=== PATIENT | female | born 1980 | race African-American/Black ===

== ENCOUNTER 2018-02-16 14:27 | Emergency (ER) | payer OTHER ==
[~2018-02-16] VITALS: Ht 154.9 cm; Wt 49.4 kg
--- OUTSIDE RECORDS SUMMARY | 2018-02-16 14:31 | XMS REPORT | Continuity of Care Document ---
Author Author [facility] Interface Address Unknown Phone Unavailable Problems Problem Status Onset Date Classification Date Reported Comments Source Encounter for medical screening examination 11/02/2017 11/05/2017 [facility] LOCK JAW Active 11/02/2017 [facility] Medications Medication Details Route Status Patient Instructions Ordering Provider Order Date Source Allergies, Adverse Reactions, Alerts Substance Category Reaction Severity Reaction type Status Date Reported Comments Source morphine Assertion Drug allergy Active [facility] Immunizations Immunization Date Given Site Status Last Updated Comments Source Results Order Name Results Value Reference Range Date Interpretation Comments Source Vital Signs Vital Sign Value Date Comments Source Systolic (mm Hg) 142 11/02/2017 [facility] Diastolic (mm Hg) 80 11/02/2017 [facility] Height 154.94 cm 11/02/2017 [facility] Respitory Rate 18 11/02/2017 [facility] Heart Rate 53 11/02/2017 [facility] Temperature Oral (F) 97.8 F 11/02/2017 [facility] Weight 51.364 11/02/2017 [facility] BMI Calculated 21.4 11/02/2017 [facility] Encounters Location Location Details Encounter Type Encounter Number Reason For Visit Attending Provider ADM Date DC Date Status Source [facility] [id number] Artis Parks 11/02/2017 11/02/2017 [facility] Procedures Procedure Code Date Perfomer Comments Source
--- OUTSIDE RECORDS SUMMARY | 2018-02-16 14:31 | XMS REPORT ---
Author Author [facility] Address Unknown Phone Unavailable Care Team Providers Care Clerical Administrator Name Role Phone Unavailable Unavailable Problems This patient has no known problems. Allergies, Adverse Reactions, Alerts This patient has no known allergies or adverse reactions. Medications This patient has no known medications. Encounters Start Date/Time End Date/Time Encounter Type Admission Type Attending [facility] Facility Care Department Encounter ID 2017-11-02 14:54:00 2017-11-02 14:54:00 Emergency [facility] [id number] 2017-06-24 23:45:39 2017-06-24 23:45:39 Emergency [facility] [id number] 2017-06-24 21:44:57 2017-06-24 21:44:57 Emergency [facility] [id number] 2017-06-24 20:46:54 2017-06-24 20:46:54 Emergency [facility] [id number]
--- OUTSIDE RECORDS SUMMARY | 2018-02-16 14:31 | XMS REPORT | Clinical Summary ---
Author Author [facility] Organization [facility] Address Unknown Phone Unavailable Care Team Providers Care Trouble Locator Test Desk Name Role Phone PCP Unavailable Allergies Active Allergy Reactions Severity Noted Date Comments Morphine 09/14/2014 Current Medications Prescription Sig. Disp. Refills Start End Date Status Date QUEtiapine (SEROQUEL) 50 Take 50 mg by mouth Active mg tablet daily. omeprazole (PRILOSEC) 20 Take 1 capsule by mouth 30 capsule 0 09/15/19 Active mg delayed release daily. 15 capsuleIndications: Unspecified gastritis and gastroduodenitis without mention of hemorrhage yplrnukco-vhgknhyi-xbhvtg Take 10 mL by mouth 3 100 mL 0 09/15/19 Active xrs-fnrgqkibome-jfpxvltof times daily. 15 -diphenhydrAMINE 1:1:1 suspension -CMPDIndications: Abdominal pain, generalized ibuprofen (MOTRIN) 600 mg Take 1 tablet by mouth 21 tablet 0 06/25/19 Active tabletIndications: Other every 8 hours as needed 18 chest pain for Pain. Active Problems Problem Noted Date Other chest pain 06/24/2017 Encounters Date Type Specialty Care Team Description 11/02/2017 Emergency Emergency Medicine 06/24/2017 Emergency Emergency Medicine Gretchen Mcneill, Other chest pain (Primary - MD Dx) 06/25/2017 after 02/15/2017 Social History Tobacco Use Types Packs/Day Years Used Date Never Smoker Smokeless Tobacco: Never Used Sex Assigned at Date Recorded Not on file Last Filed Vital Signs Vital Sign Reading Time Taken Blood Pressure 124/85 11/02/2017 2:57 PM CDT Pulse 63 11/02/2017 2:57 PM CDT Temperature 37 C (98.6 F) 11/02/2017 2:57 PM CDT Respiratory Rate 18 11/02/2017 2:57 PM CDT Oxygen Saturation 100% 11/02/2017 2:57 PM CDT Inhaled Oxygen - - Concentration Weight - - Height - - Body Mass Index - - Plan of Treatment Health Maintenance Due Date Last Done Comments Cervical Cancer Scrn (3 2001 Yrs) IMM Influenza Seasonal 01/27/2018Jan to June (>/=19 yrs) Procedures Procedure Name Priority Date/Time Associated Diagnosis Comments CT CHEST PE PROTOCOL STAT 06/25/2017 Other chest pain Results for this 12:21 AM GIS PROFESSOR procedure are in the results section. PT/INR/PTT STAT 06/24/2017 Results for this 11:58 PM GIS PROFESSOR procedure are in the results section. XRAY CHEST 2 VIEWS STAT 06/24/2017 Other chest pain Results for this 9:55 PM GIS PROFESSOR procedure are in the results section. BMP POC Routine 06/24/2017 Results for this 9:29 PM GIS PROFESSOR procedure are in the results section. POCT URINE DIPSTICK - STAT 06/24/2017 Results for this 9:28 PM GIS PROFESSOR procedure are in the results section. D-DIMER STAT 06/24/2017 Results for this 9:24 PM GIS PROFESSOR procedure are in the results section. 12 LEAD EKG Routine 06/24/2017 Results for this 7:50 PM GIS PROFESSOR procedure are in the results section. after 02/15/2017 Results * CT CHEST PE PROTOCOL (06/25/2017 12:21 AM) Impressions Performed At IMPRESSION: SMS 1.No pulmonary embolus. No acute thoracic abnormality identified to account for chest pain. 2.4 mm nodule in the left lower lobe, can be followed up in one [address] scan. Six-month follow-up is recommended if patient has a known smoking history or other significant risk factors. 3.Surgical changes of sleeve gastrectomy. This [facility] radiology report is a preliminary resident dictation until finalized by an attending.Changes to this preliminary report may occur in an additional preliminary or finalized version. Dictated By: Will Ward MD, 06/25/2017 12:35 AM I have reviewed the study and agree with the findings in this report. Signed By: Jesus Ellsworth MD, 06/25/2017 12:49 AM Narrative Performed At EXAM: CTA CHEST WITH CONTRAST SMS DATE: 06/25/2017 12:23 AM INDICATION: chest pain COMPARISON: None. TECHNIQUE: Volumetric CT acquisition of the chest, during pulmonary arterial phase, after intravenous contrast. Axial, sagittal, coronal, and oblique MIP reconstructions are created at the acquisition workstation. IV Contrast: 110 mL Omnipaque 350 DLP: 316 mGy-cm FINDINGS: Lines and tubes: None. Lower neck: Within normal limits. Heart and Mediastinum: Cardiothoracic ratio measures 0.5. Measurements and appearance of the thoracic aorta are normal. At the same level where the ascending aorta measures 2.6 cm the pulmonary trunk measures 1.8 cm. There is no pulmonary embolus. Pleura: Normal. Lymph Nodes: There is no hilar, mediastinal, axillary or internal mammary lymphadenopathy. Lungs: 4 mm nodule seen in the periphery of the left lower lobe on image 54 series 3 Otherwise clear. Trachea: Patent. Upper abdomen: Surgical changes of sleeve gastrectomy. Otherwise within normal limits. Bones and soft tissues: No acute abnormality. Procedure Note Interface, Rad/Mammog In - 06/25/2017 12:55 AM GIS PROFESSOR EXAM: CTA CHEST WITH CONTRAST DATE: 06/25/2017 12:23 AM INDICATION: chest pain COMPARISON: None. TECHNIQUE: Volumetric CT acquisition of the chest, during pulmonary arterial phase, after intravenous contrast. Axial, sagittal, coronal, and oblique MIP reconstructions are created at the acquisition workstation. IV Contrast: 110 mL Omnipaque 350 DLP: 316 mGy-cm FINDINGS: Lines and tubes: None. Lower neck: Within normal limits. Heart and Mediastinum: Cardiothoracic ratio measures 0.5. Measurements and appearance of the thoracic aorta are normal. At the same level where the ascending aorta measures 2.6 cm the pulmonary trunk measures 1.8 cm. There is no pulmonary embolus. Pleura: Normal. Lymph Nodes: There is no hilar, mediastinal, axillary or internal mammary lymphadenopathy. Lungs: 4 mm nodule seen in the periphery of the left lower lobe on image 54 series 3 Otherwise clear. Trachea: Patent. Upper abdomen: Surgical changes of sleeve gastrectomy. Otherwise within normal limits. Bones and soft tissues: No acute abnormality. IMPRESSION IMPRESSION: 1. No pulmonary embolus. No acute thoracic abnormality identified to account for chest pain. 2. 4 mm nodule in the left lower lobe, can be followed up in one [address] scan. Six-month follow-up is recommended if patient has a known smoking history or other significant risk factors. 3. Surgical changes of sleeve gastrectomy. This [facility] radiology report is a preliminary resident dictation until finalized by an attending. Changes to this preliminary report may occur in an additional preliminary or finalized version. Dictated By: Will Ward MD, 06/25/2017 12:35 AM I have reviewed the study and agree with the findings in this report. Signed By: Jesus Ellsworth MD, 06/25/2017 12:49 AM Performing Organization Address [facility] Phone Number SMS * PT/INR/PTT (06/24/2017 11:58 PM) PT 13.7 11.8 - 15.0 Seconds LB MAIN-STATION 1 INR 1.1 LB MAIN-STATION 1 SUGGESTED THERAPEUTIC RANGES: INR 2.0-3.0 for MODERATE INTENSITY ANTICOAGULATION INR 2.5-3.5 for HIGH INTENSITY ANTICOAGULATION PTT 31.7 23.6 - 36.4 Seconds [facility] MAIN-STATION 1 Specimen Blood Performing Organization Address [facility] Phone Number MISYS [facility] MAIN-STATION 1 * XRAY CHEST 2 VIEWS (06/24/2017 9:55 PM) Impressions Performed At IMPRESSION: No acute cardiopulmonary abnormality. SMS Signed By: Dasha Beatty MD, 06/24/2017 9:56 PM Narrative Performed At EXAM: XRAY CHEST 2 VIEWS SMS DATE: 06/24/2017 9:55 PM INDICATION:chest pain TECHNIQUE: PA and lateral views of the chest. COMPARISON: None DISCUSSION: Lungs are clear. No pleural effusions. Cardiovascular silhouette is within normal limits. No acute bony lesions. Surgical clips in the left upper quadrant of the abdomen. Procedure Note Interface, Rad/Mammog In - 06/24/2017 10:01 PM GIS PROFESSOR EXAM: XRAY CHEST 2 VIEWS DATE: 06/24/2017 9:55 PM INDICATION:chest pain TECHNIQUE: PA and lateral views of the chest. COMPARISON: None DISCUSSION: Lungs are clear. No pleural effusions. Cardiovascular silhouette is within normal limits. No acute bony lesions. Surgical clips in the left upper quadrant of the abdomen. IMPRESSION IMPRESSION: No acute cardiopulmonary abnormality. Signed By: Dasha Beatty MD, 06/24/2017 9:56 PM Performing Organization Address [facility] Phone Number SMS * BMP POC (06/24/2017 9:29 PM) CO2 POC 26 21 - 32 mmol/L [facility] MAIN-STATION 1 Chloride POC 102 98 - 107 mmol/L [facility] MAIN-STATION 1 Potassium POC 3.7 3.50 - 5.10 mmol/L [facility] MAIN-STATION 1 Sodium POC 142 136 - 145 mmol/L [facility] MAIN-STATION 1 Glucose POC 82 74 - 106 mg/dL [facility] MAIN-STATION 1 Urea Nitrogen POC <3 (L) 7 - 18 mg/dL [facility] MAIN-STATION 1 Creatinine POC 0.5 (L) 0.6 - 1.3 mg/dL [facility] MAIN-STATION 1 Calcium Ionized POC 1.11 (L) 1.15 - 1.29 mmol/L [facility] 1 Hemoglobin POC 12.6 12.0 - 16.0 g/dL [facility] 1 Hematocrit POC 37.0 37.0 - 47.0 % [facility] MAIN-[facility] 1 GFR, Estimated >60 mL/min/1.73 m2 [facility] 1 GFR, Estim, Afr-Am >60 mL/min/1.73 m2 [facility] 1 Performing Organization Address [facility] Phone Number MISYS [facility] 1 * POCT URINE DIPSTICK - (06/24/2017 9:28 PM) Control pass negative * D-DIMER (06/24/2017 9:24 PM) D-Dimer 1.46 ug/mL,FEU [facility] MAIN-STATION 1 Comment: Values of quantitative d-Dimer less than 0.40 ug/mL FEU have been reported to be associated with a low probability of deep vein thrombosis/pulmonary embolism. This test alone should not be used to rule out DVT/PE. Specimen Blood Performing Organization Address [facility] Phone Number MISYS [facility] 1 * 12 LEAD EKG (06/24/2017 7:50 PM) 12 LEAD EKG FOR [facility] Test Date:2017-06-24 Pat Name: PILAR BYERS Department: Room: Gender: F Head Librarian: :[id number] 08-26 Requested By: Order Number: Juliana valdovinos MD: Lowell Norman Measurements Intervals [place] Rate: 58 P: [place]: 0 QRS: 75 QRSD: 82 T:75 QT: 402 QTc:396 Interpretive Statements SINUS BRADYCARDIA NONSPECIFIC T-WAVE ABNORMALITY POOR R-WAVE PROGRESSION Electronically Signed On 06-25-17 15:12:40 GIS PROFESSOR by Lowell Norman Performing Organization Address City/State/Zipcode Phone Number SMS after 02/15/2017
--- OUTSIDE RECORDS SUMMARY | 2018-02-16 14:31 | XMS REPORT | Summary of Care ---
Author Author [facility] Organization [facility] Address Unknown Phone Unavailable Encounter [facility] Alexander(FIN) [id number] Date(s): 11/02/17 - 11/02/17 [facility] [address] [employer] provided by [facility] [employer] [place] [address]- Encounter Diagnosis Encounter for medical screening examination (Discharge Diagnosis) - 11/02/17 Discharge Disposition: Home or Self Care Attending Physician: Artis Parks MD Vital Signs Most recent to 1 oldest [Reference Range]: Height 154.94 cm (11/02/17 4:20 PM) Temperature Oral 97.8 DegF [96.4-99.1 DegF] (11/02/17 4:20 PM) Blood Pressure 142/80 mmHg [90-140/60-90 mmHg] *HI* (11/02/17 4:20 PM) Respiratory Rate 18 BRMIN [14-20 BRMIN] (11/02/17 4:20 PM) Peripheral Pulse 53 bpm Rate [60-100 bpm] *LOW* (11/02/17 4:20 PM) Weight 51.364 kg (11/02/17 4:20 PM) Body Mass Index 21.4 m2 (11/02/17 4:20 PM) Problem List No data available for this section Allergies, Adverse Reactions, Alerts Substance Reaction Severity Status morphine Active Medications No data available for this section Results No data available for this section Immunizations No data available for this section Procedures No data available for this section Social History Social History Type Response Smoking Status Never smoker; Ready to change: No; Concerns about tobacco use in household: No; Exposure to Tobacco Smoke None; Cigarette Smoking Last 365 Days No; Reg Smoking Cessation Counseling No entered on: 11/02/17 Assessment and Plan No data available for this section
[2018-02-16] MEDS ORDERED: ONDANSETRON HCL INJ 2 MG/ML VIAL IV STA (14:47)
[2018-02-16] MEDS ORDERED: IBUPROFEN 100 MG/5 ML SUSP PO ONE (15:00)
[2018-02-16] MEDS ORDERED: HYDROMORPHONE 2MG/ML 2 MG/ML ML IV NR (15:00)
[2018-02-16] MEDS ORDERED: CLINDAMYCIN PHOS 900MG/ 50ML 50 ML IV NR (15:30)
[2018-02-16 15:51] LABS: HEMATOCRIT 38.6 % (34.2-44.1); HEMOGLOBIN 12.5 g/dL (12.0-16.0); LYMPHOCYTES # (AUTO) 0.7 (1.0-3.2); LYMPHOCYTES % 16.4 % (18.0-39.1); MEAN CORPUSCULAR HEMOGLOBIN 27.4 pg (28-32); MEAN CORPUSCULAR HGB CONC 32.4 g/dL (31-35); MEAN CORPUSCULAR VOLUME 84.5 fL (81-99); MONOCYTES # (AUTO) 0.6 (0.2-0.8); NEUTROPHILS % 70.4 % (38.7-80.0); PLATELET COUNT 166 x10e3/uL (140-360); RED BLOOD COUNT 4.57 x10e6/uL (3.6-5.1); RED CELL DISTRIBUTION WIDTH 12.9 % (11.7-14.4)
[2018-02-16 16:31] LABS: ALANINE AMINOTRANSFERASE 33 IU/L (0-55); ALBUMIN 3.9 g/dL (3.5-5.0); ALBUMIN/GLOBULIN RATIO 1.5 (0.8-2.0); ALKALINE PHOSPHATASE 53 IU/L (40-150); ANION GAP 14.4 mmol/L (8-16); BLOOD UREA NITROGEN 5 mg/dL (7-26); BUN/CREATININE RATIO 7 (6-25); CALCIUM 8.8 mg/dL (8.4-10.2); CARBON DIOXIDE 25 mmol/L (22-29); CHLORIDE 105 mmol/L (98-107); CREATININE, SERUM 0.74 mg/dL (0.57-1.11); EST GLOMERULAR FILTRATION RATE > 60 ML/MIN (60-); GLUCOSE 63 mg/dL (74-118); POTASSIUM 3.4 mmol/L (3.5-5.1); SODIUM 141 mmol/L (136-145)
[2018-02-16] MEDS ORDERED: LORATADINE 10 MG TAB ONE (17:15)
[2018-02-16] MEDS ORDERED: LORATADINE 10 MG TAB PO SCH (17:40)
[2018-02-16] MEDS ORDERED: FAMOTIDINE 20 MG TAB PO ONE (18:45)
--- NOTE | 2018-02-16 19:04 | Diagnostic Imaging Report ---
ADDENDUM #1 IMPRESSION: Right frontal and encephalocele incidentally noted, recommend nonemergent evaluation with MRI brain with and without contrast. No evidence of left orbital abscess. Mild left inferior scleral enhancement suggestive of uveitis. Normal right orbit. Prominent nasopharyngeal lymphoid tissue, correlation recommended Signed by: DR Nikhil Zhao M.D. on 02/18/2018 2:49 PM ORIGINAL REPORT History:Left eye infection, rule out abscess. Comparison studies: None Technique: Axial images were obtained through the facial region. Coronal and sagittal images reconstructed from the axial data. Intravenous contrast: 100 cc of Omnipaque 300. Dose modulation, iterative reconstruction, and/or weight based adjustment of the mA/kV was utilized to reduce the radiation dose to as low as reasonably achievable. Findings: Soft tissues: Prominent retropharyngeal lymphoid tissue. Prominent pontine tonsils. Bones: No fractures or bony abnormalities. Orbits: Globes: Intact. Extra or intraconal abnormalities: None. Paranasal sinuses: Mild in the left maxillary sinus. The remaining paranasal sinuses are clear. Asymmetric widening of the right cribriform plate, 1 cm below the fovea ethmoidalis. Anterior defect at the right frontal bone with herniated brain parenchyma. Hypoplastic right frontal sinus. IMPRESSION: 1. Right frontal and encephalocele incidentally noted, recommend nonemergent evaluation with MRI brain with and without contrast. 2. No evidence of right orbital abscess or infection. 3. Prominent nasopharyngeal lymphoid tissue, correlation recommended Signed by: DR Nikhil Zhao M.D. on 02/16/2018 7:01 PM
[2018-02-16] MEDS ORDERED: ULTRAM 50MG50 MG PO (19:22)
[2018-02-16] MEDS ORDERED: SODIUM CHLORIDE 0.9% 50ML 50 ML ONE (19:56)
[2018-02-16] MEDS ORDERED: IOPAMIDOL 370 MG/ML 200 ML INFUS..BTL INJ ONE (19:56)
[2018-02-17] MEDS ORDERED: LORATADINE 10 MG TAB PO SCH (09:00)
== END 2018-02-16 19:51 | disposition home or self-care (01) ==
LOC: ER 14:27
DX: R50.9 Fever, unspecified (principal); L03.211 Cellulitis of face; K21.9 Gastro-esophageal reflux disease without esophagitis; F41.9 Anxiety disorder, unspecified
CPT/HCPCS: 36415; 70487; 80053; 84702; 85025; 87040; 99283; J1170; J2405; Q9967

== ENCOUNTER 2018-02-17 12:25 | Emergency (ER) | payer OTHER ==
[~2018-02-17] VITALS: Ht 154.9 cm; Wt 49.4 kg
[~2018-02-17 12:25] MED LIST: ULTRAM 50MG50 MG PO
--- OUTSIDE RECORDS SUMMARY | 2018-02-17 12:27 | XMS REPORT | Clinical Summary ---
Author Author [facility] Address Unknown Phone Unavailable Care Team Providers Care Software Product Specialist Name Role Phone PCP Unavailable Allergies Active [...] gastritis and gastroduodenitis without mention of hemorrhage fepvjksgz-kabnehjc-gbchtf Take 10 mL by mouth 3 100 mL 0 09/15/19 Active rpe-gnnsryvolkm-xvutctxdb times daily. 15 -diphenhydrAMINE 1:1:1 suspension -CMPDIndications: [...] pain (Primary - MD Dx) 06/25/2017 after 02/16/2017 Social History Tobacco Use Types Packs/Day Years [...] chest pain Results for this 12:21 AM RESISTOR TESTER procedure are in the results section. PT/INR/PTT STAT 06/24/2017 Results for this 11:58 PM RESISTOR TESTER procedure are in the results section. XRAY CHEST 2 VIEWS STAT 06/24/2017 Other chest pain Results for this 9:55 PM RESISTOR TESTER procedure are in the results section. BMP POC Routine 06/24/2017 Results for this 9:29 PM RESISTOR TESTER procedure are in the results section. POCT URINE DIPSTICK - STAT 06/24/2017 Results for this 9:28 PM RESISTOR TESTER procedure are in the results section. D-DIMER STAT 06/24/2017 Results for this 9:24 PM RESISTOR TESTER procedure are in the results section. 12 LEAD EKG Routine 06/24/2017 Results for this 7:50 PM RESISTOR TESTER procedure are in the results section. after 02/16/2017 Results * CT CHEST PE PROTOCOL (06/25/2017 [...] factors. 3.Surgical changes of sleeve gastrectomy. This [facility] radiology report is a preliminary resident dictation [...] Interface, Rad/Mammog In - 06/25/2017 12:55 AM RESISTOR TESTER EXAM: CTA CHEST WITH CONTRAST DATE: 06/25/2017 [...] 3. Surgical changes of sleeve gastrectomy. This [facility] radiology report is a preliminary resident dictation until finalized by an attending. Changes to this preliminary report may occur in an additional preliminary or finalized version. Dictated By: Will Ward MD, 06/25/2017 12:35 AM I have reviewed the study and agree with the findings in this report. Signed By: Jesus Ellsworth MD, 06/25/2017 12:49 AM Performing Organization Address [facility] Phone Number SMS * PT/INR/PTT (06/24/2017 11:58 PM) PT 13.7 11.8 - 15.0 Seconds LB MAIN-STATION 1 INR 1.1 LB MAIN-STATION 1 SUGGESTED THERAPEUTIC RANGES: INR 2.0-3.0 for MODERATE INTENSITY ANTICOAGULATION INR 2.5-3.5 for HIGH INTENSITY ANTICOAGULATION PTT 31.7 23.6 - 36.4 Seconds [facility] MAIN-STATION 1 Specimen Blood Performing Organization Address [facility] Phone Number MISYS [facility] MAIN-STATION 1 * XRAY CHEST 2 VIEWS [...] Interface, Rad/Mammog In - 06/24/2017 10:01 PM RESISTOR TESTER EXAM: XRAY CHEST 2 VIEWS DATE: 06/24/2017 [...] MD, 06/24/2017 9:56 PM Performing Organization Address [facility] Phone Number SMS * BMP POC (06/24/2017 9:29 PM) CO2 POC 26 21 - 32 mmol/L [facility] MAIN-STATION 1 Chloride POC 102 98 - 107 mmol/L [facility] MAIN-STATION 1 Potassium POC 3.7 3.50 - 5.10 mmol/L [facility] MAIN-STATION 1 Sodium POC 142 136 - 145 mmol/L [facility] MAIN-STATION 1 Glucose POC 82 74 - 106 mg/dL [facility] MAIN-STATION 1 Urea Nitrogen POC <3 (L) 7 - 18 mg/dL [facility] MAIN-STATION 1 Creatinine POC 0.5 (L) 0.6 - 1.3 mg/dL [facility] MAIN-STATION 1 Calcium Ionized POC 1.11 (L) 1.15 - 1.29 mmol/L [facility] 1 Hemoglobin POC 12.6 12.0 - 16.0 g/dL [facility] 1 Hematocrit POC 37.0 37.0 - 47.0 % [facility] MAIN-[facility] 1 GFR, Estimated >60 mL/min/1.73 m2 [facility] 1 GFR, Estim, Afr-Am >60 mL/min/1.73 m2 [facility] 1 Performing Organization Address [facility] Phone Number MISYS [facility] 1 * POCT URINE DIPSTICK - (06/24/2017 9:28 PM) Control pass negative * D-DIMER (06/24/2017 9:24 PM) D-Dimer 1.46 ug/mL,FEU [facility] MAIN-STATION 1 Comment: Values of quantitative d-Dimer less than 0.40 ug/mL FEU have been reported to be associated with a low probability of deep vein thrombosis/pulmonary embolism. This test alone should not be used to rule out DVT/PE. Specimen Blood Performing Organization Address [facility] Phone Number MISYS [facility] 1 * 12 LEAD EKG (06/24/2017 7:50 PM) 12 LEAD EKG FOR [facility] Test Date:2017-06-24 Pat Name: PILAR BYERS Department: Room: Gender: F Ammonia Solution Preparer: :[id number] 08-26 Requested By: Order Number: Juliana valdovinos MD: Lowell Norman Measurements Intervals [place] Rate: 58 P: [place]: 0 QRS: 75 QRSD: 82 T:75 QT: 402 QTc:396 Interpretive Statements SINUS BRADYCARDIA NONSPECIFIC T-WAVE ABNORMALITY POOR R-WAVE PROGRESSION Electronically Signed On 06-25-17 15:12:40 RESISTOR TESTER by Lowell Norman Performing Organization Address City/State/Zipcode Phone Number SMS after 02/16/2017
[2018-02-17] MEDS ORDERED: IBUPROFEN 400 MG TAB PO ONE (13:00)
[2018-02-17 13:13] VITALS: BP 113/89
== END 2018-02-17 13:15 | disposition left against medical advice (07) ==
LOC: ER 12:25
DX: R50.9 Fever, unspecified (principal)